=== PATIENT | male | born 1950 | race Caucasian/White ===

== ENCOUNTER 2016-07-16 14:01 | Outpatient (CLI) | payer BC ==
[2016-07-16 17:19] LABS: Creatinine, Urine 120.83 mg/dL (63-166); Microalbumin Urine 6.7 mg/dL (0.5-50.0); Microalbumin/Creat Ratio 55.4 mg/g (Less than 30)
== END 2016-07-16 14:02 ==
LOC: HPCALD 14:01
PROVIDERS: ATTEND Family Medicine
DX: E78.2 Mixed hyperlipidemia (principal); E11.9 Type 2 diabetes mellitus without complications
CPT/HCPCS: 82043